=== PATIENT | female | born 2000 | race Two or more races ===

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

== ENCOUNTER 2023-08-19 10:19 | Emergency (ER) | payer OTHER ==
[~2023-08-19] VITALS: Ht 160 cm; Wt 77.3 kg
[~2023-08-19 10:19] MED LIST changes: +ACET-2080 PO; +IBUP-1554 PO
[2023-08-19 10:33] VITALS: TEMP 98.5
[2023-08-19] MEDS ORDERED: LIDOCAINE 1% 10 ML VIAL SQ ONE (12:15)
[2023-08-19] MEDS ORDERED: PERTUSS(ACELL),DIPH,TET VAC/PF 0.5 ML SYRINGE IM. ONE (12:45)
[2023-08-19 14:15] VITALS: BP 121/72; PULSE 88; RESP 18
== END 2023-08-19 14:32 | disposition home or self-care (01) ==
LOC: EMS 10:19
DX: S61.411A Laceration without foreign body of right hand, initial encounter (principal); F12.90 Cannabis use, unspecified, uncomplicated; E73.9 Lactose intolerance, unspecified; Z91.018 Allergy to other foods; W26.0XXA Contact with knife, initial encounter; Y93.89 Activity, other specified; Y92.89 Other specified places as the place of occurrence of the external cause; Y99.8 Other external cause status
CPT/HCPCS: 99283; 90715; 90471; 12002; J3490

== ENCOUNTER 2024-06-21 12:39 | Emergency (ER) | payer OTHER ==
[~2024-06-21] VITALS: Ht 157.5 cm; Wt 75.0 kg
[2024-06-21 13:07] LABS: COVID AG,FIA SOURCE NASAL SWAB
[2024-06-21 13:33] LABS: SARS-COV2 (COVID) ANTIGEN,FIA Negative (Negative)
[2024-06-21 13:34] LABS: INFLUENZA TYPE A NEGATIVE FOR TYPE A (NEGATIVE); INFLUENZA TYPE B NEGATIVE FOR TYPE B (NEGATIVE); RAPID GROUP A STREP NEGATIVE (NEGATIVE)
[2024-06-21] MEDS ORDERED: SEMA0.253 SQ (13:55)
[2024-06-21] MEDS ORDERED: PENI500T2 PO (15:21)
[2024-06-21 15:55] VITALS: BP 97/49; PULSE 112; RESP 18; TEMP 102.8
== END 2024-06-21 16:03 | disposition home or self-care (01) ==
LOC: EMS 12:39
DX: J03.90 Acute tonsillitis, unspecified (principal); F12.90 Cannabis use, unspecified, uncomplicated; E73.9 Lactose intolerance, unspecified; Z20.822 Contact with and (suspected) exposure to COVID-19
CPT/HCPCS: 86308; 87430; 87804; 99283